=== PATIENT | male | born 1965 | race Caucasian/White ===

== ENCOUNTER 2022-09-22 19:39 | Inpatient (IN) | payer MEDICAID ==
[2022-09-22] MEDS ORDERED: cefTRIAXone 2 GM Vial IV ONE (19:47)
[2022-09-22] MEDS ORDERED: Insulin Lispro 100 Units/ML 3 ML Vial SUBCUT ONE (19:47)
[2022-09-22] MEDS ORDERED: cefTRIAXone 2 GM in Sodium Chloride 0.9% 100 ML IV ONE (20:00)
[2022-09-22] MEDS ORDERED: Non-Formulary Medication 1 Each (Insulin Glarg,Human.Rec.Analog 100 UNITS/ML Pen) SQ SCH (20:00)
[2022-09-22] MEDS ORDERED: Lactated Ringers 1,000 ML IV SCH (20:00)
[2022-09-22 20:10] LABS: BASOPHILS ABSOLUTE AUTO 0.03 K/uL (0.00-0.20); BASOPHILS PERCENT AUTO 0.2 % (0.0-2.0); HEMATOCRIT 35.6 % (39.0-49.0); LYMPHOCYTES ABSOLUTE AUTO 0.45 K/uL (0.50-3.50); LYMPHOCYTES PERCENT AUTO 2.3 % (10.0-50.0); MEAN CORPUSCULAR HEMOGLOBIN 27.1 pg (28.2-33.3); MEAN CORPUSCULAR HGB CONC 33.7 g/dL (31.7-36.0); MEAN CORPUSCULAR VOLUME 80.4 fL (84.0-98.0); MONOCYTES ABSOLUTE AUTO 0.73 K/uL (0.00-1.00); MONOCYTES PERCENT AUTO 3.8 % (2.0-14.0); NEUTROPHILS ABSOLUTE AUTO 18.05 K/uL (1.40-7.00); NEUTROPHILS PERCENT AUTO 93.7 % (45.0-80.0); PLATELET COUNT,PLT 114 K/uL (150-350); RED BLOOD CELL COUNT 4.43 M/uL (4.33-5.41); RED CELL DISTRIBUTION WIDTH 13.5 % (11.2-14.1); WHITE BLOOD CELL COUNT,WBC 19.3 K/uL (4.0-10.2)
[2022-09-22 20:12] LABS: APPEARANCE,URINE CLOUDY; BILIRUBIN,URINE NEGATIVE (NEGATIVE); COLOR,URINE LIGHT YELLOW; GLUCOSE,URINE 500 mg/dL (NEGATIVE); KETONES,URINE TRACE mg/dL (NEGATIVE); LEUKOCYTE ESTERASE,URINE SMALL (NEGATIVE); NITRITE,URINE NEGATIVE (NEGATIVE); OCCULT BLOOD,URINE MODERATE (NEGATIVE); PROTEIN,URINE 100 mg/dL (NEGATIVE); UROBILINOGEN,URINE 0.2 E.U./dL (0.2-1.0)
[2022-09-22] MEDS ORDERED: Acetaminophen 325 MG Tab PO ONE (20:13)
[2022-09-22 20:18] LABS: EPITHELIAL CELLS,URINE RARE /LPF; RBC,URINE 0-5 /HPF; WBC,URINE >100 /HPF
[2022-09-22 20:19] LABS: BACTERIA,URINE MANY /HPF (NONE TO FEW)
[2022-09-22 20:36] LABS: LACTIC ACID 2.7 mmol/L (0.4-2.0)
[2022-09-22 20:43] LABS: ALANINE AMINOTRANSFERASE,ALT 30 U/L (12-78); ALBUMIN 2.5 g/dL (3.4-5.0); ALKALINE PHOSPHATASE 128 IU/L (46-116); ASPARTATE AMNIOTRANSFERASE,AST 20 U/L (15-37); BILIRUBIN TOTAL 0.5 mg/dL (0.2-1.0); BLOOD UREA NITROGEN,BUN 51 mg/dL (7-18); CALCIUM 9.1 mg/dL (8.5-10.1); CARBON DIOXIDE,CO2 25.5 mmol/L (21.0-32.0); CHLORIDE,CL 99 mmol/L (98-107); CREATININE 2.19 mg/dL (0.51-1.17); POTASSIUM,K 4.3 mmol/L (3.5-5.1); PROTEIN TOTAL,TP 6.5 g/dL (6.4-8.2); SODIUM,NA 135 mmol/L (136-145)
[2022-09-22] MEDS ORDERED: 50% Dextrose in Water 50 ML Syringe IVPUSH PRN ×2 (20:44→21:33)
[2022-09-22] MEDS ORDERED: Insulin Lispro 100 Units/ML 3 ML Vial SUBCUT STA (20:44)
[2022-09-22] MEDS ORDERED: Glucagon,Human Recombinant 1 MG Vial IM PRN ×2 (20:44→21:33)
[2022-09-22 20:45] LABS: ANION GAP 14.8 meq/L (7-15)
[2022-09-22 20:46] LABS: ESTIMATED GFR 34 mL/min (>=60); GLUCOSE RANDOM 527 mg/dL (70-99)
[2022-09-22] MEDS: Lactated Ringers 1,000 ML IV SCH (20:49)
[2022-09-22 20:50] LABS: C-REACTIVE PROTEIN 41.3 mg/dL (<=0.9)
[2022-09-22] MEDS: Sodium Chloride 0.9% 10 ML Syringe FLUSH PRN (20:57)
[2022-09-22] MEDS ORDERED: Ondansetron 4 MG Tab.DIS PO PRN (21:29)
[2022-09-22] MEDS ORDERED: Polyethylene Glycol 3350 Powder 17 GM Packet PO PRN (21:29)
[2022-09-22] MEDS ORDERED: Acetaminophen 325 MG Tab PO PRN (21:29)
[2022-09-22] MEDS: Insulin Glarg,Human.Rec.Analog 100 Unit/ML SUBCUT SCH (22:09)
[2022-09-23] MEDS: Lactated Ringers 1,000 ML IV SCH (04:28)
[2022-09-23] MEDS ORDERED: Rosuvastatin 10 MG Tab PO SCH (08:00)
[2022-09-23] MEDS: Aspirin 81 MG Tab.EC PO SCH (08:48)
[2022-09-23] MEDS: Enoxaparin 40 MG/0.4 ML Syringe SUBCUT SCH (08:49)
[2022-09-23] MEDS: Insulin Lispro 100 Units/ML 3 ML Vial SUBCUT SCH ×4 (08:54→20:11)
[2022-09-23 10:24] LABS: HEMATOCRIT 33.5 % (39.0-49.0); HEMOGLOBIN 11.1 g/dL (13.1-16.8); MEAN CORPUSCULAR HGB CONC 33.1 g/dL (31.7-36.0); MEAN CORPUSCULAR VOLUME 81.5 fL (84.0-98.0); PLATELET COUNT,PLT 106 K/uL (150-350); RED BLOOD CELL COUNT 4.11 M/uL (4.33-5.41); RED CELL DISTRIBUTION WIDTH 13.4 % (11.2-14.1)
[2022-09-23 10:49] LABS: CALCIUM 9.3 mg/dL (8.5-10.1); CARBON DIOXIDE,CO2 25.5 mmol/L (21.0-32.0); CREATININE 1.61 mg/dL (0.51-1.17); EST CRCL DRUG DOSING (CG) 47.76 mL/min; MAGNESIUM 1.7 mg/dL (1.8-2.4); POTASSIUM,K 3.8 mmol/L (3.5-5.1)
[2022-09-23 10:51] LABS: ANION GAP 9.3 meq/L (7-15)
[2022-09-23] MEDS: Sodium Chloride 0.9% 1,000 ML IV SCH ×2 (12:08→19:55)
[2022-09-23] MEDS ORDERED: Vancomycin 1.5 GM in Sodium Chloride 0.9% 500 ML IV SCH (12:30)
[2022-09-23] MEDS: cefTRIAXone 2 GM in Sodium Chloride 0.9% 100 ML IV SCH (19:21)
[2022-09-23] MEDS: Insulin Glarg,Human.Rec.Analog 100 Unit/ML SUBCUT SCH (20:10)
[2022-09-23] MEDS: Rosuvastatin 10 MG Tab PO SCH (20:13)
[2022-09-24] MEDS: Enoxaparin 40 MG/0.4 ML Syringe SUBCUT SCH ×2 (08:01→13:44)
[2022-09-24] MEDS: Aspirin 81 MG Tab.EC PO SCH ×2 (08:01→13:44)
[2022-09-24] MEDS: Insulin Lispro 100 Units/ML 3 ML Vial SUBCUT SCH ×4 (08:01→20:09)
[2022-09-24] MEDS ORDERED: VANCOmycin 1.5 GM/300 ML 1.5 GM in Premix Bag 1 BAG IV SCH (12:30)
[2022-09-24] MEDS: Sodium Chloride 0.9% 10 ML Syringe FLUSH PRN ×2 (12:32→18:00)
[2022-09-24 16:29] LABS: BASOPHILS ABSOLUTE AUTO 0.03 K/uL (0.00-0.20); BASOPHILS PERCENT AUTO 0.2 % (0.0-2.0); EOSINOPHILS ABSOLUTE AUTO 0.09 K/uL (0.00-0.50); EOSINOPHILS PERCENT AUTO 0.7 % (0.0-5.0); HEMATOCRIT 33.1 % (39.0-49.0); HEMOGLOBIN 11.1 g/dL (13.1-16.8); LYMPHOCYTES ABSOLUTE AUTO 0.64 K/uL (0.50-3.50); LYMPHOCYTES PERCENT AUTO 5.2 % (10.0-50.0); MEAN CORPUSCULAR HEMOGLOBIN 27.1 pg (28.2-33.3); MEAN CORPUSCULAR HGB CONC 33.5 g/dL (31.7-36.0); MEAN CORPUSCULAR VOLUME 80.9 fL (84.0-98.0); MONOCYTES ABSOLUTE AUTO 0.71 K/uL (0.00-1.00); MONOCYTES PERCENT AUTO 5.8 % (2.0-14.0); NEUTROPHILS ABSOLUTE AUTO 10.77 K/uL (1.40-7.00); NEUTROPHILS PERCENT AUTO 88.1 % (45.0-80.0); PLATELET COUNT,PLT 86 K/uL (150-350); RED BLOOD CELL COUNT 4.09 M/uL (4.33-5.41); RED CELL DISTRIBUTION WIDTH 13.2 % (11.2-14.1); WHITE BLOOD CELL COUNT,WBC 12.2 K/uL (4.0-10.2)
[2022-09-24 16:37] LABS: BILIRUBIN TOTAL 0.7 mg/dL (0.2-1.0); CALCIUM 8.8 mg/dL (8.5-10.1); CARBON DIOXIDE,CO2 23.8 mmol/L (21.0-32.0); CREATININE 1.27 mg/dL (0.51-1.17); EST CRCL DRUG DOSING (CG) 60.52 mL/min; POTASSIUM,K 3.6 mmol/L (3.5-5.1); PROTEIN TOTAL,TP 5.7 g/dL (6.4-8.2)
[2022-09-24 16:47] LABS: ANION GAP 14.8 meq/L (7-15)
[2022-09-24] MEDS: cefTRIAXone 2 GM in Sodium Chloride 0.9% 100 ML IV SCH (18:01)
[2022-09-24] MEDS: Insulin Glarg,Human.Rec.Analog 100 Unit/ML SUBCUT SCH (20:07)
[2022-09-24] MEDS: Rosuvastatin 10 MG Tab PO SCH (20:12)
[2022-09-25 07:18] LABS: HEMATOCRIT 31.3 % (39.0-49.0); HEMOGLOBIN 10.6 g/dL (13.1-16.8); MEAN CORPUSCULAR HGB CONC 33.9 g/dL (31.7-36.0); MEAN CORPUSCULAR VOLUME 79.8 fL (84.0-98.0); PLATELET COUNT,PLT 80 K/uL (150-350); RED BLOOD CELL COUNT 3.92 M/uL (4.33-5.41)
[2022-09-25] MEDS: Insulin Lispro 100 Units/ML 3 ML Vial SUBCUT SCH ×4 (07:30→20:16)
[2022-09-25] MEDS: Aspirin 81 MG Tab.EC PO SCH (07:33)
[2022-09-25] MEDS: Enoxaparin 40 MG/0.4 ML Syringe SUBCUT SCH (07:34)
[2022-09-25 07:46] LABS: ANION GAP 10.4 meq/L (7-15); CALCIUM 8.5 mg/dL (8.5-10.1); CARBON DIOXIDE,CO2 26.6 mmol/L (21.0-32.0); CREATININE 1.28 mg/dL (0.51-1.17); EST CRCL DRUG DOSING (CG) 60.05 mL/min; POTASSIUM,K 3.5 mmol/L (3.5-5.1)
[2022-09-25] MEDS: Magnesium Chloride 64 MG Tab.ER PO SCH (11:55)
[2022-09-25] MEDS: Sodium Chloride 0.9% 10 ML Syringe FLUSH PRN ×2 (18:07→18:08)
[2022-09-25] MEDS: cefTRIAXone 2 GM in Sodium Chloride 0.9% 100 ML IV SCH (18:07)
[2022-09-25] MEDS: Insulin Glarg,Human.Rec.Analog 100 Unit/ML SUBCUT SCH (20:17)
[2022-09-25] MEDS: Rosuvastatin 10 MG Tab PO SCH (20:19)
[2022-09-26] MEDS: Magnesium Chloride 64 MG Tab.ER PO SCH (08:51)
[2022-09-26] MEDS: Insulin Lispro 100 Units/ML 3 ML Vial SUBCUT SCH ×2 (08:58→12:40)
[2022-09-26] MEDS: Aspirin 81 MG Tab.EC PO SCH (08:59)
[2022-09-26] MEDS: Enoxaparin 40 MG/0.4 ML Syringe SUBCUT SCH (08:59)
== END 2022-09-26 13:15 | DRG 871 ==
LOC: LL.ED 19:39 → LL.MS 20:45
PROVIDERS: ADMIT Hospitalist; ATTEND Hospitalist
DX: A41.9 Sepsis, unspecified organism (principal); G93.41 Metabolic encephalopathy; E87.20 Acidosis, unspecified; N17.9 Acute kidney failure, unspecified; N30.00 Acute cystitis without hematuria; G89.29 Other chronic pain; M54.50 Low back pain, unspecified; R65.20 Severe sepsis without septic shock; E78.2 Mixed hyperlipidemia; E11.65 Type 2 diabetes mellitus with hyperglycemia; I10 Essential (primary) hypertension; F41.9 Anxiety disorder, unspecified; F32.A Depression, unspecified; K21.9 Gastro-esophageal reflux disease without esophagitis; E83.42 Hypomagnesemia; E11.42 Type 2 diabetes mellitus with diabetic polyneuropathy; Z79.82 Long term (current) use of aspirin; Z79.4 Long term (current) use of insulin; Z79.899 Other long term (current) drug therapy
CPT/HCPCS: 36415; 51702; 80048; 80053; 80202; 81001; 82947; 83605; 83735; 85025; 85027; 86140; 87040; 87077; 87086; 87088; 87186; 93005; 96365; 96366; 99285-25; A9270-GY; J0696; J1650; J1815-GY; J3370; J3490; J7030; J7040; J7050; J7120